=== PATIENT | female | born 2000 | race African-American/Black ===

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

== ENCOUNTER 2019-01-30 11:42 | Emergency (ER) | payer OTHER ==
[2019-01-30 12:05] VITALS: BP 128/48
--- NOTE | 2019-01-30 12:45 | UC ---
Throat Pain/Nasal Miguel A HPI - HPI Summary HPI Summary: Patient is a 18yo female presenting with a sore throat and swollen glands x3 days. Patient states she tested positive for strep and mono about 5 weeks ago and had to go to the ER for treatment. She says she got better but does not think she ever fully recovered because she is always so busy. States her throat is now getting swollen again. Denies fever. Denies eye symptoms. Notes congestion and PND. Denies cough. Denies SOB and wheezing. Notes nausea. Denies v/d. Denies abdominal pain. Notes fatigue and decreased appetite. She states she can still swallow solids and liquids. - History of Current Complaint Chief Complaint: UCGeneralIllness Stated Complaint: sore THROAT Time Seen by Provider: 01/30/19 12:35 Hx Last Menstrual Period: 01/08/19 Onset/Duration: Gradual Onset, Lasting Days Severity: Moderate Pain Intensity: 7 Pain Scale Used: 0-10 Numeric Associated Signs & Symptoms: Negative: Dysphagia, FB Sensation, Drooling, Fever Related History: Seasonal Allergies - Allergies/Home Medications Allergies/Adverse Reactions: Allergies Allergy/AdvReac Type Severity Reaction Status Date / Time No Known Allergies Allergy Verified 01/30/19 12:05 PMH/Surg Hx/FS Hx/Imm Hx - Surgical History Surgical History: None - Family History Known Family History: Positive: Diabetes, Other - sinusitis, allergies in mom Family History: sinusitis, allergies in mom - Social History Alcohol Use: Rare Substance Use Type: Marijuana Substance Use Comment - Amount & Last Used: couple times a month Smoking Status (MU): Never Smoked Tobacco Type: Cigarettes - Immunization History Most Recent Pneumonia Vaccination: NOT IMMUNIZED Vaccination Up to Date: No Review of Systems All Other Systems Reviewed And Are Negative: Yes Constitutional: Positive: Fatigue. Negative: Fever, Chills Skin: Positive: Negative Eyes: Positive: Negative. Negative: Drainage, Eye Redness ENT: Positive: Sore Throat, Ear Ache, Nasal Discharge, Sinus Congestion. Negative: Sinus Pain/Tenderness Respiratory: Positive: Negative. Negative: Shortness Of Breath, Cough Cardiovascular: Positive: Negative Gastrointestinal: Positive: Nausea. Negative: Abdominal Pain, Vomiting, Diarrhea Genitourinary: Positive: Negative Neurovascular: Positive: Negative Musculoskeletal: Negative: Myalgia Neurological: Negative: Headache Psychological: Positive: Negative Physical Exam Triage Information Reviewed: Yes Appearance: Well-Appearing, No Pain Distress, Well-Nourished Vital Signs: Initial Vital Signs Temp 97.8 F 01/30/19 12:01 Pulse 85 01/30/19 12:01 Resp 16 01/30/19 12:01 BP 128/48 01/30/19 12:01 Pulse Ox 100 01/30/19 12:01 Laboratory Tests 01/30/19 12:46 Group A Strep Rapid Negative Eyes: Positive: Conjunctiva Clear ENT: Positive: Hearing grossly normal, Pharyngeal erythema, Nasal congestion, Nasal drainage, TMs normal, Tonsillar swelling - severe tonsillar swelling, Uvula midline - unable to discern uvula. Negative: TM bulging, TM dull, TM red , Tonsillar exudate, Trismus, Muffled voice, Hoarse voice, Sinus tenderness Neck exam: Normal Neck: Positive: Supple, Nontender, No Lymphadenopathy Respiratory Exam: Normal Respiratory: Positive: Lungs clear, Normal breath sounds, No respiratory distress, No accessory muscle use Cardiovascular Exam: Normal Cardiovascular: Positive: RRR. Negative: Tachycardia Neurological: Positive: Alert Psychological: Positive: Age Appropriate Behavior Throat Pain/Nasal Course/Dx - Course Course Of Treatment: I gave the patient one dose of dexamethasone and clindamycin here due to the severity of her swollen throat. She was sitting and breathing comfortably throughout the entire visit. Her vitals are normal. She had no difficulty swallowing her secretions and specifically requested pills because she does not like liquid or IM medications. Patient states she has been eating and drinking without difficulty. Her strep test was negative, but throat swab is being sent for culture and I am treating her empirically for a bacterial infection in an effort to get ahead. Since this is recurrent for her, I stressed the importance of continuing her steroids and antibiotics at home. I also stressed the importance of following up with the ENT referral provided to her. She was instructed to go to the emergency room if her symptoms worsen, including difficulty breathing, swallowing, if she experiences drooling or fever. Patient and mother voiced understanding and agreed to the treatment plan. - Differential Dx/Diagnosis Provider Diagnosis: Pharyngitis Discharge ED - Sign-Out/Discharge Documenting (check all that apply): Patient Departure All imaging exams completed and their final reports reviewed: No Studies - Discharge Plan Condition: Stable Disposition: HOME Prescriptions: Clindamycin Cap(NF) [Clindamycin Cap 300 mg Cap(NF)] 300 mg PO TID #20 cap predniSONE TAB* [Deltasone TAB*] 50 mg PO DAILY #5 tab Patient Education Materials: Pharyngitis (ED) Forms: *Work Release Referrals: Lucas Santana MD [Primary Care Provider] - David Beckham MD [Medical Doctor] - As Soon As Possible Additional Instructions: As discussed, you tested negative for strep throat today. Your throat swab will be sent for a culture and you will be notified with any abnormal results. Take clindamycin exactly as prescribed for the treatment of a possible bacterial source of infection. You should take probiotics or eat martiniquais yogurt while you are taking your antibiotics to help avoid stomach upset. Take prednisone exactly as prescribed to help with your inflammation. You may take ibuprofen and/or tylenol as directed for fever and pain relief. Get plenty of rest and fluids. It is important that you follow up with your primary care physician or the ENT referral as listed below as soon as possible. Return or go to the emergency room if symptoms worsen, you experience fever, difficulty swallowing, drooling, or difficulty breathing. - Billing Disposition and Condition Condition: STABLE Disposition: Home - Attestation Statements Provider Attestation: I was available for consult. This patient was seen by the MAYANK. The patient was not presented to, seen by, or examined by me. -Simon
[2019-01-30] MEDS ORDERED: Dexamethasone TAB* 4 MG PO ONE (12:53)
[2019-01-30] MEDS ORDERED: Clindamycin CAP* 150 MG PO ONE (13:06)
--- NOTE | 2019-02-01 17:40 | UC ---
- Progress Note Progress Note: normal juan - throat final no change jessi 02/01/19 Course/Dx - Diagnoses Provider Diagnoses: Pharyngitis Discharge ED - Sign-Out/Discharge Documenting (check all that apply): Post-Discharge Follow Up All imaging exams completed and their final reports reviewed: No Studies - Discharge Plan Condition: Stable Disposition: HOME Prescriptions: Clindamycin Cap(NF) [Clindamycin Cap 300 mg Cap(NF)] 300 mg PO TID #20 cap predniSONE TAB* [Deltasone TAB*] 50 mg PO DAILY #5 tab Patient Education Materials: Pharyngitis (ED) Forms: *Work Release Referrals: David Beckham MD [Medical Doctor] - As Soon As Possible Lucas Santana MD [Primary Care Provider] - Additional Instructions: As discussed, you tested negative for strep throat today. Your throat swab will be sent for a culture and you will be notified with any abnormal results. Take clindamycin exactly as prescribed for the treatment of a possible bacterial source of infection. You should take probiotics or eat [place] yogurt while you are taking your antibiotics to help avoid stomach upset. Take prednisone exactly as prescribed to help with your inflammation. You may take ibuprofen and/or tylenol as directed for fever and pain relief. Get plenty of rest and fluids. It is important that you follow up with your primary care physician or the ENT referral as listed below as soon as possible. Return or go to the emergency room if symptoms worsen, you experience fever, difficulty swallowing, drooling, or difficulty breathing. - Billing Disposition and Condition Condition: STABLE Disposition: Home
== END 2019-01-30 13:44 | disposition home or self-care (01) ==
LOC: UCEAST 11:42
DX: J02.9 Acute pharyngitis, unspecified (principal)
CPT/HCPCS: 87070; 87651; 99212; A9270-GY; G0463; J8540